=== PATIENT | male | born 1995 | race Caucasian/White ===

== ENCOUNTER 2017-05-07 19:12 | Inpatient (IN) | payer OTHER ==
[~2017-05-07] VITALS: Ht 170.2 cm; Wt 100.0 kg
[2017-05-07 20:52] LABS: BASOPHIL % 0.3 % (0-2); PLATELET COUNT 305 x10^3mcL (130-400); RED CELL DISTRIBUTION WIDTH 13.9 % (11.5-14.5)
[2017-05-07 20:56] LABS: CALCIUM 9.5 mg/dL (8.5-10.1); CARBON DIOXIDE 25.7 mmol/L (21-32); CHLORIDE SERUM 103 mmol/L (98-107); GFR1 > 60 mL/min; GLUCOSE SERUM 94 mg/dL (74-106); POTASSIUM SERUM 3.3 mmol/L (3.5-5.1); SODIUM SERUM 141 mmol/L (136-145)
[2017-05-07 21:01] LABS: ALKALINE PHOSPHATASE 103 U/L (46-116); ALT/SGPT 82 U/L (16-63); AST/SGOT 43 U/L (15-37); BILIRUBIN TOTAL 0.5 mg/dL (0.20-1.00); TOTAL PROTEIN, SERUM 8.3 g/dL (6.4-8.2)
[2017-05-07 21:35] LABS: CK-MB < 0.5 ng/mL (0-3.6); CREATINE KINASE 39 U/L (39-308)
[2017-05-07 21:51] LABS: MAGNESIUM 1.8 mg/dL (1.8-2.4); PHOSPHOROUS 3.8 mg/dL (2.5-4.9)
[2017-05-07 21:53] LABS: CHOLESTEROL/HDL RATIO 12.1
[2017-05-07 22:04] LABS: FREE T4 1.76 ng/dL (0.76-1.46); FREE THYROXINE INDEX 4.3 ug/dL (1.4-4.5); T4(THYROXINE) 12.9 ug/dL (4.7-13.3)
[2017-05-07 22:33] VITALS: BP 140/80; BP 174/80
[2017-05-08] VITALS (7 sets, daily range): BP systolic 119–1130; BP diastolic 68–76
[2017-05-08 07:39] LABS: UA SPECIFIC GRAVITY >=1.030 (1.005-1.035); microscopic required? YES; urine erythrocyte NEGATIVE (NEGATIVE)
[2017-05-08 07:48] LABS: BASOPHIL % 0.3 % (0-2); PLATELET COUNT 322 x10^3mcL (130-400); RED CELL DISTRIBUTION WIDTH 13.8 % (11.5-14.5)
[2017-05-08 08:15] LABS: CALCIUM 9.2 mg/dL (8.5-10.1); CARBON DIOXIDE 25.1 mmol/L (21-32); CHLORIDE SERUM 105 mmol/L (98-107); GFR1 > 60 mL/min; GLUCOSE SERUM 85 mg/dL (74-106); POTASSIUM SERUM 3.7 mmol/L (3.5-5.1); SODIUM SERUM 141 mmol/L (136-145)
[2017-05-08 08:19] LABS: AMPHETAMINE QUAL UR NONE DETECTED (NEG <=1000)
[2017-05-08 11:47] LABS: T3 TOTAL 1.31 ng/mL
[2017-05-09 05:42] VITALS: BP 156/84
[2017-05-09 06:32] LABS: BASOPHIL % 0.5 % (0-2); PLATELET COUNT 317 x10^3mcL (130-400)
[2017-05-09 06:52] LABS: C REACTIVE PROTEIN 5.9 mg/dL (<=0.9); CALCIUM 8.6 mg/dL (8.5-10.1); CARBON DIOXIDE 24.5 mmol/L (21-32); CHLORIDE SERUM 109 mmol/L (98-107); CREATININE SERUM 0.9 mg/dL (0.7-1.3); GFR1 > 60 mL/min; GLUCOSE SERUM 89 mg/dL (74-106); MAGNESIUM 1.9 mg/dL (1.8-2.4); PHOSPHOROUS 3.5 mg/dL (2.5-4.9); POTASSIUM SERUM 3.8 mmol/L (3.5-5.1); SODIUM SERUM 144 mmol/L (136-145)
[2017-05-09 08:22] VITALS: BP 140/86
[2017-05-09 09:11] LABS: ERYTHROCYTE SED RATE 49 mm/hr (0-15)
[2017-05-09] MEDS ORDERED: LIPI20 PO (09:54)
[2017-05-09] MEDS ORDERED: TRAMADOL HCL50 MG PO (09:59)
[2017-05-09 12:30] VITALS: BP 140/86
[2017-05-09 12:56] VITALS: BP 157/98
== END 2017-05-09 13:50 | disposition home or self-care (01) | DRG 48 ==
LOC: ED 19:12 → DU 20:49
PROVIDERS: Anesthesiology; Emergency Medicine; ADMIT Family Medicine
PROC: 3E0R3GC Introduction of Other Therapeutic Substance into Spinal Canal, Percutaneous Approach (ICD-10-PCS; principal; 2017-05-08 16:30)
DX: G90.9 Disorder of the autonomic nervous system, unspecified (principal); N17.0 Acute kidney failure with tubular necrosis; G97.1 Other reaction to spinal and lumbar puncture; E44.0 Moderate protein-calorie malnutrition; E87.6 Hypokalemia; F12.10 Cannabis abuse, uncomplicated; Z68.52 Body mass index [BMI] pediatric, 5th percentile to less than 85th percentile for age; E66.9 Obesity, unspecified; I65.21 Occlusion and stenosis of right carotid artery; E78.5 Hyperlipidemia, unspecified
CPT/HCPCS: 83880; 84439; 87046; 87046-59; 87491; 87591; J0696; J1170; J1885; J2270; J2405; J2800; J7030; Q0092